=== PATIENT | male | born 1960 | race Caucasian/White ===

== ENCOUNTER → 2016-08-29 | Outpatient (CLI) | payer BC ==
[2016-08-29 11:00] LABS: HEMOGLOBIN A1C 7.75 % (4.2-6.0); MEAN BLOOD GLUCOSE (CALC) 172.075 mg/dL
== END ==
LOC: LAB 10:30
DX: E11.9 Type 2 diabetes mellitus without complications (principal)
CPT/HCPCS: 36415; 83036

== ENCOUNTER → 2016-10-12 | Outpatient (CLI) | payer BC ==
--- NOTE | 2016-10-12 11:16 | DI ---
XR FOOT COMPLETE MIN 3VW WB,10/12/2016 9:39 AM: Clinical History: Hammertoe of the right foot. Previous Exam: None at this facility. Findings: 3 views of the right foot are obtained weightbearing, and demonstrate a pes planus deformity. Degenerative changes are noted of the first and second metatarsophalangeal joints. There is also dege nerative change of the interphalangeal joints. The surrounding soft tissues are unremarkable. Impression: Degenerative changes and hammertoe deformities as above. Pes planus.
--- NOTE | 2016-10-12 11:19 | DI ---
XR ANKLE COMPLETE MIN 3VW,10/12/2016 9:40 AM: Clinical History: Left ankle pain of unspecified chronicity. Previous Exam: October 12, 2016 Findings: Weightbearing views of the left ankle are obtained, and demonstrate significant pes planus deformity and degenerative changes of the midfoot predominantly involving the talonavicular joint. There are no fractures. The mortise and distal tibiofibular joint are unremarkable. Impression: Diffuse degenerative changes of the midfoot with underlying pes planus.
--- NOTE | 2016-10-12 11:19 | DI ---
XR FOOT COMPLETE MIN 3VW WB,10/12/2016 9:40 AM: Clinical History: Hammertoe deformity. Previous Exam: None at this facility. Findings: 3 weightbearing views of the left foot are obtained, and demonstrate a pes planus deformity. There ar e extensive degenerative changes within the midfoot predominantly involving the talonavicular joint w ith osteophyte formation. Mild degenerative changes of the first metatarsophalangeal joint are seen. There are some degenerative changes of the interphalangeal joints which are more mild in degree. There are multiple hammertoe deformities identified. Impression: Pes planus deformity with mid foot degeneration. Hammertoe deformities.
== END ==
LOC: RAD 09:36
PROVIDERS: ATTEND Podiatrist Foot & Ankle Surgery
DX: M79.671 Pain in right foot (principal); M20.41 Other hammer toe(s) (acquired), right foot; M20.21 Hallux rigidus, right foot; M25.572 Pain in left ankle and joints of left foot; M20.42 Other hammer toe(s) (acquired), left foot; M20.22 Hallux rigidus, left foot; M21.542 Acquired clubfoot, left foot; M21.072 Valgus deformity, not elsewhere classified, left ankle
CPT/HCPCS: 73610; 73630